=== PATIENT | female | born 1990 | race Caucasian/White ===

== ENCOUNTER 2016-11-25 12:46 | Emergency (ER) | payer MEDICAID ==
[2016-11-25 13:10] VITALS: BP 104/64
--- NOTE | 2016-11-25 14:50 | UC ---
Respiratory Complaint HPI - HPI Summary HPI Summary: Patient is a 5 week female with CC of nasal drainage, cough, and fatigue. Denies throat pain, ear pain, stiff neck, photophobia. Denies fevers , sweats and chills. She has not taken any medication. She is otherwise healthy. - History of Current Complaint Chief Complaint: UCRespiratory Stated Complaint: URI Time Seen by Provider: 11/25/16 13:22 Hx Obtained From: Patient Hx Last Menstrual Period: 06/25/15 ?: Yes Onset/Duration: Sudden Onset Timing: Constant Severity Initially: Mild Severity Currently: Mild Pain Intensity: 0 Pain Scale Used: 0-10 Numeric Character: Cough: Nonproductive Alleviating Factors: Upright Position, Spontaneous Resolution Associated Signs And Symptoms: Positive: URI, Nasal Congestion, Sinus Discomfort - Risk Factors Pulmonary Embolism Risk Factors: Negative Cardiac Risk Factors: Negative Pseudomonas Risk Factors: Negative Tuberculosis Risk Factors: Negative - Allergies/Home Medications Allergies/Adverse Reactions: Allergies Allergy/AdvReac Type Severity Reaction Status Date / Time No Known Allergies Allergy Verified 11/25/16 13:06 PMH/Surg Hx/FS Hx/Imm Hx Previously Healthy: Yes - Surgical History Surgical History: None - Family History Known Family History: Positive: None, Hypertension - Social History Occupation: Employed Part-time Lives: With Family Alcohol Use: None Alcohol Amount: couple times a week Substance Use Type: None Smoking Status (MU): Never Smoked Tobacco Have You Smoked in the Last Year: No - Immunization History Most Recent Influenza Vaccination: none Hx Tetanus, Diphtheria Vaccination: Yes Vaccination Up to Date: Yes Review of Systems Constitutional: Negative Eyes: Negative ENT: Nasal Discharge, Sinus Congestion, Sinus Pain/Tenderness Respiratory: Cough Cardiovascular: Negative Motor: Negative Neurovascular: Negative Musculoskeletal: Negative Neurological: Negative Psychological: Negative Is Patient Immunocompromised?: No All Other Systems Reviewed And Are Negative: Yes Physical Exam Triage Information Reviewed: Yes Appearance: Well-Appearing, Well-Nourished Vital Signs: Initial Vital Signs Temp 97.8 F 11/25/16 13:06 Pulse 71 11/25/16 13:06 Resp 16 11/25/16 13:06 BP 104/64 11/25/16 13:06 Pulse Ox 100 11/25/16 13:06 Vital Signs Reviewed: Yes Eye Exam: Normal Eyes: Positive: Conjunctiva Clear ENT: Positive: Nasal congestion, Nasal drainage. Negative: Pharynx normal, TMs normal, TM bulging, Tonsillar swelling, Tonsillar exudate, Muffled/hoarse voice Neck exam: Normal Neck: Positive: Supple, No Lymphadenopathy Respiratory Exam: Normal Respiratory: Positive: Chest non-tender, Lungs clear Cardiovascular Exam: Normal Cardiovascular: Positive: RRR Musculoskeletal Exam: Normal Musculoskeletal: Positive: Strength Intact Neurological Exam: Normal Neurological: Positive: Alert Psychological: Positive: Normal Response To Family Skin Exam: Normal UC Diagnostic Evaluation - Laboratory O2 Sat by Pulse Oximetry: 100 Respiratory Course/Dx - Course Course Of Treatment: Patient evalauted for sinus congestion and sinus pressure with cough x 4 days. She is 5 weeks . Likely a viral illness and patient is given nasal ipratroprium. She is OK with supportive treatment at this time and will return for any worsening symptoms. She is given return precautions and will not start an abx at this time. VS stable. Lungs CTA. Rhinorrhea is clear. - Differential Dx/Diagnosis Differential Diagnosis/HQI/PQRI: Asthma, Bronchitis, Lower Resp Infection, Sinusitis Provider Diagnoses: Upper Respiratory Illness Discharge - Discharge Plan Condition: Stable Disposition: HOME Prescriptions: Ipratropium Victoria (Nasal) [Ipratropium Victoria] 0.03 % NA TID #1 bottle Patient Education Materials: Upper Respiratory Infection (ED) Forms: *Work Release Referrals: No Primary Care Phys,NOPCP [Primary Care Provider] - Additional Instructions: Over the counter: any are OK ipratroprium bromide nasal spray 2-3 times per day Humidifier in the home will help. hot tea with lemon and honey will help with any drainage or sore throat. Tylenol 650mg three times daily for any pain related to your symptoms Out of work until Thursday With your - often times cold symptoms can last much longer. Treat yourself well and drink plenty of fluids and rest as much as possible
== END 2016-11-25 14:00 | disposition home or self-care (01) ==
LOC: UCEAST 12:46
DX: J06.9 Acute upper respiratory infection, unspecified (principal)
CPT/HCPCS: 99212; G0463

== ENCOUNTER 2017-07-28 08:29 | Inpatient (IN) | payer OTHER ==
--- NOTE | 2017-07-28 09:40 | HP ---
General Information - General Information Maternal Age: 26 Grav: 1 Para: 0 SAB: 0 IEA: 0 Estimated Due Date: 07/19/17 Gestational Age in Weeks and Days: 41 Weeks and 2 Days Maternal Blood Type and Rh: A Positive - Results this Serology/RPR Result: Non-Reactive Rubella Result: Immune HBsAg Result: Negative HIV Result: Negative GBS Culture Result: Negative Past Medical History Delivery History Comment: primigravida Past Medical History Comment: no current problems Pertinent Past Surgical History: None Pertinent Family History: Non-Contributory - Antepartal Records Antepartal Records: Reviewed, Uncomplicated Review of Systems Constitutional: Uncomfortable CV Complaint: No Respiratory: Shortness of Breath: No Genitourinary: No Leaking Fluid Musculoskeletal: Back Pain, Contractions Neurological: No Headache Movement: Normal - Comments nausea/vomiting Exam Allergies/Adverse Reactions: Allergies No Known Allergies Allergy (Verified 11/25/16 13:06) - Measurements Height: 5 ft 7 in Weight: 143 lb Weight in lbs: 143 Body Mass Index (BMI): 22.4 Pre- Weight: 124 lb Weight Gained This : 19 lbs and 0 ozs - Exam Breast: - - soft, no masses Extremities: No Edema Heart: Normal Rhythm/Heart Sounds HEENT: No Significant Findings Lungs: Clear Bilaterally Reflexes: DTR 2+ Thyroid: No Thyromegaly - Ultrasound/Biophysical Profile Ultrasound Status: Not Done Targeted Exam Findings See L&D Outpatient Visit Provider Note for Findings: N/A Estimated Weight: 7. 5 lbs Cervical Exam: 4cm Effacement: 90% Station: +1 Presenting Part: Vertex Membrane Status: Intact EFM Findings - External Monitor Findings Baseline Heart Rate: 135 External Monitor Findings: Accelerations Present, No Pattern of Variable or Late Decelerations, Variability Moderate External Monitor Findings Comment: category 1 Contractions: Regular, Strong, 45-90 Seconds Contraction Frequency: 3 min Assessment/Plan - Obstetrical Risk Factors Obstetrical Risk Factors: Post-Dates - Plan Plan: Active Labor Plan Comment: IUP at 41 w 2 days Active labor Will admit , anticipate vaginal delivery Declines analgesia/anesthesia at present - Date/Time of Admission Date of Admission: 07/28/17 Time of Admission: 08:45
[2017-07-28] MEDS ORDERED: Ibuprofen TAB* 600 MG ONE (14:05)
[2017-07-28] MEDS ORDERED: Glycerin ADULT SUPP PR PRN (14:15)
[2017-07-28] MEDS ORDERED: Acetaminophen TAB* 325 MG PO PRN (14:15)
[2017-07-28] MEDS ORDERED: Tetan/Diph/Pertus SYR(Tdap)* 0.5 ML SYR(BOOSTRIX) use SYR IM ONE (14:15)
[2017-07-28] MEDS ORDERED: OXYTOCIN* 10 UNITS/ML 1 ML VIAL IM ONE (14:15)
[2017-07-28] MEDS: Ibuprofen TAB* 600 MG PO PRN (19:28)
[2017-07-28] MEDS: Docusate CAP* 100 MG PO SCH (19:28)
[2017-07-28] MEDS: Witch Hazel PAD* JAR TOPICAL PRN (19:29)
[2017-07-28] MEDS: Dibucaine 1% 28.35 GM TUBE PR PRN (19:29)
[2017-07-29 06:31] LABS: Hematocrit 38 % (35-47); Hemoglobin 13.2 g/dl (12.0-16.0); Mean Corpuscular HGB Conc 35 g/dl (31-36); Mean Corpuscular Hemoglobin 33 pg (27-31); Mean Corpuscular Volume 96 fL (80-97); Mean Platelet Volume 10.9 um3 (7.4-10.4); Platelet Count 167 10^3/ul (150-450); Red Blood Count 3.99 10^6/ul (4.0-5.4); Red Cell Distribution Width 13 % (10.5-15); White Blood Count 11.7 10^3/ul (3.5-10.8)
[2017-07-29] MEDS: Docusate CAP* 100 MG PO SCH ×3 (08:23→21:15)
[2017-07-29] MEDS: Ibuprofen TAB* 600 MG PO PRN ×2 (08:23→16:06)
[2017-07-29] MEDS ORDERED: Ferrous Gluconate TAB* 324 MG TAB PO SCH (09:00)
[2017-07-29] MEDS: Witch Hazel PAD* JAR TOPICAL PRN (16:06)
[2017-07-30] MEDS: Dibucaine 1% 28.35 GM TUBE PR PRN (06:20)
[2017-07-30 07:39] VITALS: BP 114/81
[2017-07-30] MEDS: Docusate CAP* 100 MG PO SCH (09:05)
[2017-07-30] MEDS: Ibuprofen TAB* 600 MG PO PRN (09:05)
== END 2017-07-30 12:02 | disposition home or self-care (01) | DRG 560 ==
LOC: MCHOBOUT 08:29 → MCHOB 08:39
PROVIDERS: ADMIT Midwife; ATTEND Midwife
PROC: 10E0XZZ Delivery of Products of Conception, External Approach (ICD-10-PCS; principal; 2017-07-28)
PROC: 4A1HXCZ Monitoring of Products of Conception, Cardiac Rate, External Approach (ICD-10-PCS; 2017-07-28)
PROC: 10907ZC Drainage of Amniotic Fluid, Therapeutic from Products of Conception, Via Natural or Artificial Opening (ICD-10-PCS; 2017-07-28)
DX: O48.0 Post-term pregnancy (principal); Z3A.41 41 weeks gestation of pregnancy; Z37.0 Single live birth; O71.89 Other specified obstetric trauma; O32.6XX0 Maternal care for compound presentation, not applicable or unspecified; O32.2XX0 Maternal care for transverse and oblique lie, not applicable or unspecified
CPT/HCPCS: 36415; 85027; 90715; A9270-GY; J2590

== ENCOUNTER 2017-11-24 12:55 | Emergency (ER) | payer SELFPAY ==
[2017-11-24 13:31] VITALS: BP 120/64
--- NOTE | 2017-11-24 13:31 | UC ---
Throat Pain/Nasal Vic HPI - HPI Summary HPI Summary: 26 yo female presents with sinus pain/pressure/congestion, productive cough, fatigue, and body aches over the last 12 days. She has been taking tylenol and mucinex OTC with mild relief at first, but no longer helping. She denies fever, chills, SOB, chest pain, rash. - History of Current Complaint Chief Complaint: UCGeneralIllness Stated Complaint: COUGH Time Seen by Provider: 11/24/17 13:31 Hx Obtained From: Patient Hx Last Menstrual Period: post- Onset/Duration: Gradual Onset Severity: Mild Pain Intensity: 3 Pain Scale Used: 0-10 Numeric Cough: Productive - Allergies/Home Medications Allergies/Adverse Reactions: Allergies Allergy/AdvReac Type Severity Reaction Status Date / Time No Known Allergies Allergy Verified 11/24/17 13:24 Home Medications: Home Medications Ibuprofen 800 mg PO DAILY PRN 11/24/17 [History Confirmed 11/24/17] guaiFENesin [Mucinex] 600 mg PO BID PRN 11/24/17 [History Confirmed 11/24/17] PMH/Surg Hx/FS Hx/Imm Hx - Additional Past Medical History Additional PMH: None - Surgical History Surgical History: None - Family History Known Family History: Positive: Hypertension - Social History Occupation: Employed Full-time Lives: With Family Alcohol Use: Rare Alcohol Amount: couple times a week Substance Use Type: None Smoking Status (MU): Never Smoked Tobacco Have You Smoked in the Last Year: No - Immunization History Most Recent Influenza Vaccination: 01/21/17 Most Recent Pneumonia Vaccination: Unknown Hx Tetanus, Diphtheria Vaccination: Yes Vaccination Up to Date: Yes Review of Systems Constitutional: Fatigue Skin: Negative Eyes: Negative ENT: Nasal Discharge, Sinus Congestion, Sinus Pain/Tenderness Respiratory: Cough Cardiovascular: Negative Gastrointestinal: Negative Neurovascular: Negative Neurological: Negative Psychological: Negative All Other Systems Reviewed And Are Negative: Yes Physical Exam - Summary Physical Exam Summary: GENERAL: NAD. WDWN. No pain distress. SKIN: Outer nostrils with erythema and mild honey-colored crusting. No open wounds, bleeding, or active drainage. HEENT: Head: AT/NC Eyes: EOM intact. Conjunctiva clear without inflammation or discharge. Ears: Hearing grossly normal. TMs intact, no bulging, erythema, or edema. Nose: Nasal mucosa mildly swollen and erythematous with yellow/ clear discharge. TTP maxillary and frontal sinus. Throat: Posterior oropharynx without exudates, erythema, or tonsillar enlargement. Uvula midline. NECK: Supple. Nontender. No lymphadenopathy. CHEST: CTAB. No r/r/w. No accessory muscle use. Breathing comfortably and in no distress. CV: RRR. Without m/r/g. Pulses intact. NEURO: Alert. PSYCH: Age appropriate behavior. Triage Information Reviewed: Yes Vital Signs: Initial Vital Signs Temp 97.8 F 11/24/17 13:26 Pulse 67 11/24/17 13:26 Resp 20 11/24/17 13:26 BP 120/64 11/24/17 13:26 Pulse Ox 100 11/24/17 13:26 Vital Signs Reviewed: Yes Throat Pain/Nasal Course/Dx - Course Course Of Treatment: Sinusitis - Differential Dx/Diagnosis Provider Diagnoses: sinusitis Discharge - Sign-Out/Discharge Documenting (check all that apply): Patient Departure All imaging exams completed and their final reports reviewed: No Studies - Discharge Plan Condition: Stable Disposition: HOME Prescriptions: Amoxicillin/Clavulanate TAB* [Augmentin TAB 875*] 875 mg PO BID #20 tab Mupirocin 2% OINT* [Bactroban 2 % Oint*] 1 applic TOPICAL BID #1 tube Patient Education Materials: Sinusitis (ED) Referrals: No Primary Care Phys,NOPCP [Primary Care Provider] - Additional Instructions: If you develop a fever, shortness of breath, chest pain, new or worsening symptoms - please call your PCP or go to the ED. - Billing Disposition and Condition Condition: STABLE Disposition: Home
== END 2017-11-24 13:43 | disposition home or self-care (01) ==
LOC: UCEAST 12:55
DX: J32.9 Chronic sinusitis, unspecified (principal)
CPT/HCPCS: 99212; G0463

== ENCOUNTER 2018-05-12 13:40 | Emergency (ER) | payer MEDICAID, OTHER ==
[2018-05-12 14:23] VITALS: BP 107/69
--- NOTE | 2018-05-12 15:14 | ED ---
Respiratory - HPI Summary HPI Summary: 27 yo WF p/w sinus congestion with green d/c associated with B/L sinus pains x 2 weeks, nose is inflamed and raw on opening of B/L nares, denies f/c - History of Current Complaint Chief Complaint: UCGeneralIllness Stated Complaint: HEADACHE Time Seen by Provider: 05/12/18 14:27 Hx Obtained From: Patient Onset/Duration: Lasting Weeks Initial Severity: Moderate Current Severity: Severe Pain Intensity: 0 Sputum Amount: Moderate Sputum Color: Green Aggravating Factor(s): Nothing Alleviating Factor(s): Nothing - Allergy/Home Medications Allergies/Adverse Reactions: Allergies Allergy/AdvReac Type Severity Reaction Status Date / Time No Known Allergies Allergy Verified 11/24/17 13:24 PMH/Surg Hx/FS Hx/Imm Hx Previously Healthy: Yes Endocrine/Hematology History: Denies: Hx Diabetes, Hx Thyroid Disease Cardiovascular History: Denies: Hx Hypertension, Hx Myocardial Infarction Respiratory History: Denies: Hx Asthma, Hx Chronic Obstructive Pulmonary Disease (COPD), Hx Pneumonia GI History: Denies: Hx Ulcer Infectious Disease History: No Infectious Disease History: Denies: Hx Hepatitis, Hx Human Immunodeficiency Virus (HIV), History Other Infectious Disease, Traveled Outside the [place] in Last 30 Days - Family History Known Family History: Positive: None, Hypertension - Social History Alcohol Use: None Alcohol Amount: couple times a week Substance Use Type: Reports: None Smoking Status (MU): Never Smoked Tobacco Have You Smoked in the Last Year: No Review of Systems - ROS Summary Review of Systems Summary: Constitutional: Negative Skin: Negative Eyes: Negative ENT: B/L sinus pains and drainage Cardiovascular: Negative Respiratory: Negative Gastrointestinal: Negative Genitourinary: Negative Musculoskeletal: Negative Neurological: Negative Psychological: Normal All Other Systems Reviewed And Are Negative: Yes All Other Systems Reviewed And Are Negative: Yes Physical Exam - Summary Physical Exam Summary: Triage Information Reviewed: Yes Appearance: No Pain Distress Eye Exam: Normal ENT Exam: erythematous and inflamed nares and turbinates no obvious drainage noted Neck: Supple Respiratory: Lungs clear, Normal breath sounds Cardiovascular: Positive: RRR, S1, S2 Abdominal Exam: Normal Musculoskeletal Exam: Normal Neurological Exam: Normal Psychological Exam: Normal Skin Exam: Normal Vital Signs On Initial Exam: Initial Vitals Temp Pulse Resp BP Pulse Ox 37.5 C 70 16 107/69 100 05/12/18 14:18 05/12/18 14:18 05/12/18 14:18 05/12/18 14:18 05/12/18 14:18 Diagnostics - Vital Signs Vital Signs Temp Pulse Resp BP Pulse Ox 05/12/18 14:18 37.5 C 70 16 107/69 100 - Laboratory Lab Statement: Any lab studies that have been ordered have been reviewed, and results considered in the medical decision making process. Disposition - Diagnoses Provider Diagnoses: Acute sinusitis Discharge - Sign-Out/Discharge Documenting (check all that apply): Patient Departure All imaging exams completed and their final reports reviewed: No Studies - Discharge Plan Condition: Stable Disposition: HOME Prescriptions: Amoxicillin/Clavulanate TAB* [Augmentin TAB 500 mg*] 500 mg PO BID 7 Days #14 tab Fluticasone NASAL SPRAY 50MCG* [Flonase NASAL SPRAY 50MCG*] 2 spray BOTH NARES DAILY 7 Days #1 btl Patient Education Materials: Rhinosinusitis (ED) - Billing Disposition and Condition Condition: STABLE Disposition: Home
== END 2018-05-12 15:20 | disposition home or self-care (01) ==
LOC: UCEAST 13:40
DX: J01.90 Acute sinusitis, unspecified (principal)
CPT/HCPCS: 99212; G0463

== ENCOUNTER 2019-07-13 02:04 | Inpatient (IN) ==
[2019-07-13] MEDS ORDERED: Lactated Ringers 1000 ml BAG 1,000 ML IV ONE (02:33)
[2019-07-13] MEDS ORDERED: Lactated Ringers 1000 ml BAG 1,000 ML IV SCH ×2 (03:00→11:00)
[2019-07-13 03:14] LABS: ABS Eosinophils 0.1 10^3/ul (0-0.6); ABS Lymphocytes 2.4 10^3/ul (1.0-4.8); ABS Monocytes 0.5 10^3/ul (0-0.8); Eosinophil % 0.6 %; Hematocrit 37 % (35-47); Lymphocyte % 28.4 %; Mean Corpuscular HGB Conc 35 g/dL (31-36); Mean Corpuscular Hemoglobin 34 pg (27-31); Mean Corpuscular Volume 97 fL (80-97); Mean Platelet Volume 10.3 fL (7.4-10.4); Nucleated Red Blood Cells % 0.1; Platelet Count 180 10^3/uL (150-450); Red Blood Count 3.85 10^6 /uL (3.70-4.87); Red Cell Distribution Width 13 % (10-15); White Blood Count 8.5 10^3/uL (3.5-10.8)
[2019-07-13 04:25] LABS: Urine Benzodiazepine Screen None Detected (None Detect); Urine Opiates Screen None Detected (None Detect)
[2019-07-13] MEDS ORDERED: Glycerin ADULT 2.4 gm SUPP PR PRN (10:04)
[2019-07-13] MEDS ORDERED: Witch Hazel PAD JAR TOPICAL PRN (10:04)
[2019-07-13] MEDS ORDERED: Dibucaine 1% OINT 28.35 GM TUBE PR PRN (10:04)
[2019-07-14 05:54] LABS: ABS Basophils 0.1 10^3/ul (0-0.2); ABS Lymphocytes 2.2 10^3/ul (1.0-4.8); ABS Monocytes 0.4 10^3/ul (0-0.8); Eosinophil % 0.6 %; Hematocrit 34 % (35-47); Lymphocyte % 27.2 %; Mean Corpuscular HGB Conc 35 g/dL (31-36); Mean Corpuscular Hemoglobin 34 pg (27-31); Mean Corpuscular Volume 98 fL (80-97); Mean Platelet Volume 9.8 fL (7.4-10.4); Nucleated Red Blood Cells % 0.1; Platelet Count 166 10^3/uL (150-450); Red Blood Count 3.52 10^6 /uL (3.70-4.87); Red Cell Distribution Width 13 % (10-15); White Blood Count 8.1 10^3/uL (3.5-10.8)
[2019-07-14] MEDS ORDERED: Tetan/Diph/Pertus SYR(Tdap)* 0.5 ML SYR(BOOSTRIX) use SYR contains LATEX IM ONE (09:00)
[2019-07-14 09:29] VITALS: BP 123/80
== END 2019-07-14 14:20 | disposition home or self-care (01) | DRG 560 ==
LOC: MCHOBOUT 02:04 → MCHOB 02:48
PROVIDERS: ADMIT Advanced Practice Midwife; ATTEND Midwife